=== PATIENT | male | born 1955 | race Caucasian/White ===

== ENCOUNTER → 2023-04-03 06:38 | Day surgery (SDC) | payer OTHER, SELFPAY | LOC: GI 06:38 | PROVIDERS: ATTENDING PHYSICIAN Internal Medicine Gastroenterology | DX: Z12.11 Encounter for screening for malignant neoplasm of colon (principal); K57.30 Diverticulosis of large intestine without perforation or abscess without bleeding; K64.8 Other hemorrhoids | CPT/HCPCS: G0105 ==

== ENCOUNTER → 2023-06-22 09:24 | Outpatient (REF) | payer OTHER, SELFPAY | LOC: RCS 09:24 | PROVIDERS: ATTENDING PHYSICIAN Internal Medicine Interventional Cardiology; FAMILY PHYSICIAN Physician Assistant | DX: I10 Essential (primary) hypertension (principal); E78.2 Mixed hyperlipidemia; R07.9 Chest pain, unspecified | CPT/HCPCS: 93306 ==

== ENCOUNTER → 2023-07-02 08:32 | Outpatient (REF) | payer OTHER, SELFPAY | LOC: DHCBC/DCA 08:32 | PROVIDERS: ATTENDING PHYSICIAN Internal Medicine Interventional Cardiology; FAMILY PHYSICIAN Physician Assistant | DX: I10 Essential (primary) hypertension (principal); R07.9 Chest pain, unspecified | CPT/HCPCS: 78452; 93017; A9500 ==

== ENCOUNTER 2023-07-16 09:16 | Day surgery (SDC) | payer OTHER, SELFPAY ==
[2023-07-16] VITALS (18 sets, daily range): BP systolic 118–176; BP diastolic 62–81; BMI 28.5
[2023-07-16 10:08] LABS: Hematocrit 40.9 % (39.0-52.0); Hemoglobin 14.1 g/dL (13.0-18.0); Mean Corp Hgb Conc. 34.5 g/dL (33.0-37.0); Mean Corpuscular Hgb 30.6 pg (27.0-31.0); Mean Corpuscular Volume 88.7 fL (80.0-94.0); Mean Platelet Volume 10.1 fL (7.4-10.4); Platelet Count 174 10^3/uL (130-400); Red Blood Cell Count 4.61 10^6/uL (4.70-6.10); Red Cell Dist. Width 13.8 % (11.5-14.5); White Blood Cell Count 6.6 10^3/uL (4.8-10.8)
[2023-07-16] MEDS: LOW STRENGTH ASPIRIN 81 MG PO (10:21)
[2023-07-16] MEDS: NSS 263 ML IV (10:22)
--- NOTE | 2023-07-16 10:47 | PTCARENOTE ---
SST REDRAWN and sent to lab.
[2023-07-16 11:12] LABS: Blood Urea Nitrogen 16 mg/dl (9-20); Calcium 8.5 mg/dl (8.4-10.2); Carbon Dioxide 24 mmol/L (22-30); Chloride 110 mmol/L (98-107); Estimated Creatinine Clearance 86 ml/min; Glucose 98 mg/dl (70-99); Potassium 4.6 mmol/L (3.5-5.1); Sodium 140 mmol/L (135-145); eGFR > 60.00
[2023-07-16 12:38] LABS: ACT-LR - POC 368 Seconds (116-155)
[2023-07-16 13:08] LABS: ACT-LR - POC 316 Seconds (116-155)
[2023-07-16 13:48] LABS: ACT-LR - POC 263 Seconds (116-155)
[2023-07-16] MEDS: NORVASC 2.5 MG PO (15:54)
--- NOTE | 2023-07-16 16:29 | PTCARENOTE ---
Report to SUSI Ellis.
--- NOTE | 2023-07-16 18:16 | ITS.CL.CATH ---
Micro Lab Analyst - Catheterization
Cardiac Catheterization
Procedure Report:
LEFT HEART CATHETERIZATION
Date of Procedure: July 16, 2023
Referring: Ayde Parker MD, [facility], [facility]
PROCEDURES:
1. Left heart catheterization, coronary angiogram.
2. Ultrasound-guided access.
3. Successful percutaneous coronary intervention of mid LAD with 2 overlapping 2.75 x 18 mm and 2.5 x 18 mm Medtronic Kamaljit frontier drug-eluting stent, postdilated with a 3.0 x 20 mm NC balloon at 18 elsy proximally with an excellent angiographic
result
4. Intravascular ultrasound (IVUS)
INDICATION: Exertional chest discomfort and abnormal stress test
ACCESS: Right radial artery, 6 [place]ian sheath, under ultrasound guidance
HEMODYNAMICS : (mmHg)
AO (s/d) : 139/62
LV (s/d) : 146/6
LVEDP : 14
CORONARY FINDINGS
DOMINANCE: Right
LEFT MAIN: The left renal artery is a large-caliber vessel which gives rise to the left anterior descending artery and the left circumflex artery. There is mild diffuse atherosclerotic plaque.
LEFT ANTERIOR DESCENDING: The left anterior descending artery is a large-caliber vessel which gives rise to 1 major diagonal branch as it courses through the anterior interventricular groove and wraps around the apex. Ostial LAD has calcified 40%
stenosis. Mid LAD has a 70% stenosis just distal to the takeoff of the diagonal branch followed by a 99% tubular stenosis which is likely culprit for abnormal stress test and patient's symptoms with intervention as noted below.
CIRCUMFLEX: The circumflex artery is a medium caliber vessel which gives rise to 3 major obtuse marginal branches, one is high rising. There is minimal luminal irregularities.
RIGHT CORONARY ARTERY: The right coronary artery is a large-caliber, dominant vessel which gives rise to the right posterior descending artery and the right posterolateral system. There is mild diffuse plaque in the mid RCA up to 20%. Right PDA
has 2 serial lesions up to 70% however this is small in caliber.
CORONARY INTERVENTION: Decision was made to move forward with percutaneous intervention of the mid LAD. Additional heparin was given to maintain a therapeutic ACT throughout the case.
SEDATION: 119 minutes of procedural sedation was utilized. An independent nuclear medical technologist was present to assist with and help manage the patient's level of consciousness and physiologic status.
RADIATION SUMMARY: Fluoro Time (min): 27.8, Dose (mGy): 1275.5, DAP (Gy.cm2) : 106.88
Closure Device: Vascular band over right radial artery, 10 cc of air
CONCLUSIONS
1. Successful percutaneous coronary intervention of mid LAD with 2 overlapping 2.75 x 18 mm and 2.5 x 18 mm Medtronic Kamaljit frontier drug-eluting stent, postdilated with a 3.0 x 20 mm NC balloon at 18 elsy proximally with an excellent angiographic
result.
2. Normal LVEDP at 14 mmHg
RECOMMENDATIONS
1. Uninterrupted dual antiplatelet therapy with daily baby aspirin and Plavix along with high intensity statin and beta-jos.
2. Goal-directed medical therapy for underlying obstructive coronary artery disease.
3. Optimization of cardiovascular risk factors.
4. Referral for outpatient cardiac rehab
Ayde Parker MD, FACC, [facility]
[2023-07-16] MEDS: CRESTOR 40 MG PO (19:14)
--- NOTE | 2023-07-17 01:18 | PTCARENOTE ---
Received patient from rn labor and delivery at change of shift into room 8818. Patient ambulated self in room, denies any dizziness. Tele monitor applied pt sinus reid w/ 1st AV block. HR in the 40-50's at rest. Right radial dressing intact w/ positive pulse.
No hematoma noted at this time. Patient verbalized understanding in regards to activity restrictions. CAD packet given. Patient aware of POC, and oriented to room.
[2023-07-17 02:51] VITALS: BP 143/78
[2023-07-17 03:17] LABS: Hematocrit 40.5 % (39.0-52.0); Hemoglobin 13.7 g/dL (13.0-18.0); Mean Corp Hgb Conc. 33.8 g/dL (33.0-37.0); Mean Corpuscular Hgb 30.6 pg (27.0-31.0); Mean Corpuscular Volume 90.4 fL (80.0-94.0); Mean Platelet Volume 10.2 fL (7.4-10.4); Platelet Count 152 10^3/uL (130-400); Red Blood Cell Count 4.48 10^6/uL (4.70-6.10); Red Cell Dist. Width 13.5 % (11.5-14.5); White Blood Cell Count 7.5 10^3/uL (4.8-10.8)
[2023-07-17 03:44] LABS: Blood Urea Nitrogen 17 mg/dl (9-20); Calcium 8.8 mg/dl (8.4-10.2); Carbon Dioxide 24 mmol/L (22-30); Chloride 109 mmol/L (98-107); Estimated Creatinine Clearance 86 ml/min; Glucose 94 mg/dl (70-99); Potassium 4.7 mmol/L (3.5-5.1); Sodium 142 mmol/L (135-145); eGFR > 60.00
[2023-07-17 07:13] VITALS: BP 137/73
--- NOTE | 2023-07-17 08:06 | PTCARENOTE ---
Assumed care of pt from prev nsg shift AAAOX3 w/no c/o CP or SOB. VS stable w/HR in the 50's-60's, BP 137/73, & pt is SB w/1st deg AVB on telemetry monitoring. Pt's R radial site w/dressing C/D/I & no signs or symptoms of bleeding or hematoma. Pt
w/no addtl needs at this time. Plan of care ongoing.
[2023-07-17] MEDS: PLAVIX 75 MG PO (09:41)
[2023-07-17] MEDS: PROTONIX 40 MG PO (09:41)
[2023-07-17] MEDS: LOW STRENGTH ASPIRIN 81 MG PO (09:41)
[2023-07-17] MEDS: NORVASC 2.5 MG PO (09:41)
[2023-07-17 09:50] LABS: HDL Cholesterol 74 mg/dl; LDL Cholesterol, Calculated 53 mg/dl; Total Cholesterol 138 mg/dl (50-199); Triglyceride 59 mg/dl (10-149); Very Low Density Lipoprotein 11 mg/dl (0-30)
--- NOTE | 2023-07-17 10:03 | W.PN.CARDCBS ---
Today's Communication / Plan
-
post PCI LAD x2
stable for d/c home
Impression / Plan
-
PCP: Dr. Brown
CDY: Ayde Scales MD
Impression:
Chest pain with Abnormal NST
CAD post PCI LAD x2 JEANIE
Residual PDA stenosis 70%, treat medically
HTN
HLD
Skin cancer basal cell
inguinal hernia repair
CONCLUSIONS
1. Successful percutaneous coronary intervention of mid LAD with 2 overlapping 2.75 x 18 mm and 2.5 x 18 mm Medtronic Goodell frontier drug-eluting stent, postdilated with a 3.0 x 20 mm NC balloon at 18 elsy proximally with an excellent angiographic
result.
2. Normal LVEDP at 14 mmHg
Plan:
post PCI, feels good
no CP
Rad site ecchymotic but no HT
tele SB HR 40-50's, asymptomatic
DAPT ASA/Plavix
continue metoprolol, will add amlodipine 2.5mg daily for medical therapy for PDA
Will increase rosuvastatin 40mg daily, LDL 53
Cardiac rehab c/s
f/u DCA 2-4 weeks
home later today
Progress Note - Machine Turner
Subjective
Date of Service: July 17, 2023
no cp, sob
Objective
Labs:
07/17/23 02:48
07/17/23 02:48
Labs
Hgb 13.7 g/dL (13.0-18.0) 07/17/23 02:48
Hct 40.5 % (39.0-52.0) 07/17/23 02:48
Plt Count 152 10^3/uL (130-400) 07/17/23 02:48
Sodium 142 mmol/L (135-145) 07/17/23 02:48
Potassium 4.7 mmol/L (3.5-5.1) 06/04/24 02:48
BUN 17 mg/dl (9-20) 07/17/23 02:48
Creatinine 0.8 mg/dL (0.7-1.3) 07/17/23 02:48
Glucose 94 mg/dl (70-99) 07/17/23 02:48
Vital Signs and I&O:
Vital Signs
Temp Pulse Resp BP Pulse Ox
97.7 F 42 16 137/73 99
07/17/23 07:11 07/17/23 08:00 07/17/23 07:11 07/17/23 07:13 07/17/23 07:11
Vital Signs
Temp Pulse Resp BP Pulse Ox
97.7 F 42 16 137/73 99
07/17/23 07:11 07/17/23 08:00 07/17/23 07:11 07/17/23 07:13 07/17/23 07:11
Intake & Output
07/15/23 07/16/23 07/17/23 07/18/23
06:59 06:59 06:59 06:59
Intake Total 1223 / 1223
Output Total 425 / 425
Balance 798 / 798
Physical Exam
Physical Exam
General: No acute distress, AAOX3
HEENT: EOMI b/l
Neck: Negative JVD, Neg carotid bruits b/l
Heart: Regular, Negative S3 positive S1/S2, Negative S4, No murmur
Lungs: CTA b/l, negative wheezes/rales/rhonchi
Abd: Positive BS, NT/ND, neg rebound/rigidity/guarding
Ext: Negative cyanosis/clubbing/edema
Neuro: nonfocal
Skin: R rad site c/d/i no HT, mild ecchymosis, good pulse
--- NOTE | 2023-07-17 10:39 | CM ---
Chart reviewed. Patient is independent of ADLS, lives with his in a [address], 0 [address], 0 DME. Plan is to return home.
[2023-07-17 11:30] VITALS: BP 147/82
--- NOTE | 2023-07-17 11:30 | W.DS.TRANS ---
DC Summary - [employer]
-
Discharge Instructions:
Discharge Diagnosis/Procedures Angioplasty with stent to LAD x2
Diet Low Cholesterol
Driving Restrictions No driving for 24 hours
Other Services Cardiac Rehab
Instructions:
Stand-Alone Forms: DC Instructions- Cath/EP Lab
Changes to Home Medications: Yes
Discharge Medications:
DC Medications w/original date entered in [employer]
aspirin 81 mg chewable tablet 81 mg PO DAILY 07/16/23
cyanocobalamin (vitamin B-12) 5,000 mcg capsule 5,000 mcg PO DAILY 07/16/23
metoprolol succinate 25 mg tablet,extended release 24 hr 25 mg PO DAILY 07/16/23
amlodipine 2.5 mg tablet 2.5 mg PO DAILY #90 tabs 07/17/23
clopidogrel 75 mg tablet 75 mg PO DAILY #90 tabs 07/17/23
nitroglycerin 0.4 mg sublingual tablet 0.4 mg sublingual [id number] PRN chest pain #25 tabs 07/17/23
rosuvastatin 40 mg tablet 40 mg PO QPM #90 tabs 07/17/23
Home Medication Changes
new to plavix, nitro, amlodipine, increased rosuvastatin
Pending Results: No
[2023-07-17 15:34] VITALS: BP 139/87
--- NOTE | 2023-07-17 16:17 | PTCARENOTE ---
Pt D/C'd to home w/ providing transportation. Pt left w/personal belongings incl cellphone, metal sprayer, & clothing.
== END 2023-07-17 16:22 | disposition home or self-care (01) ==
LOC: CATH 09:16
PROVIDERS: Physician Assistant Medical; ATTENDING PHYSICIAN Internal Medicine Interventional Cardiology; FAMILY PHYSICIAN Physician Assistant
DX: I25.10 Atherosclerotic heart disease of native coronary artery without angina pectoris (principal); R94.39 Abnormal result of other cardiovascular function study; I25.84 Coronary atherosclerosis due to calcified coronary lesion; R07.9 Chest pain, unspecified; I10 Essential (primary) hypertension; E78.5 Hyperlipidemia, unspecified; Z79.02 Long term (current) use of antithrombotics/antiplatelets; Z79.82 Long term (current) use of aspirin; Z85.828 Personal history of other malignant neoplasm of skin
CPT/HCPCS: 99152; 99153; 92978; 80048; 80061; 85027; 85347; 93005; 93458; C1725; C1753; C1769; C1874; C1894; C9600; Q9967

== ENCOUNTER 2024-03-05 18:05 | Outpatient (RCR) | payer OTHER, SELFPAY | END 2024-03-05 23:59 | disposition home or self-care (01) | LOC: CRHB 18:05 | PROVIDERS: ATTENDING PHYSICIAN Internal Medicine Interventional Cardiology | DX: I25.10 Atherosclerotic heart disease of native coronary artery without angina pectoris (principal); Z95.5 Presence of coronary angioplasty implant and graft | CPT/HCPCS: 93798 ==